=== PATIENT | female | born 1965 | race Caucasian/White ===

== ENCOUNTER → 2017-05-15 | Outpatient (CLI) | payer OTHER ==
[2015-12-22 15:50] VITALS: BP 161/121
--- NOTE | 2017-05-15 16:32 | Diagnostic Imaging Report ---
KIM CAREY [facility] [address] [facility].[address] [address] Report Submission Date: May 15, 2017 3:49:51 PM CDT Patient Study Name: LINDA KITCHEN Date: May 15, 2017 3:20:04 PM CDT Modality Type: CR Gender: F Description: CHEST : 69 Institution: [facility] Physician: KIM CAREY Examination: PA and lateral chest. History: Evaluate lung almonte. Comparison exam none provided Findings: PA lateral chest demonstrate a normal cardiac and mediastinal silhouette. Mild parenchymal haziness involving the right inferior hilum. No other consolidative process. No blunting of the costophrenic margins. Osseous structures are appropriate for age. Impression: Mild right infrahilar hazy infiltrate. No effusion. Electronically signed on May 15, 2017 3:49:51 PM CDT by: Franklyn LOMELI
[2017-05-15 16:41] LABS: eGFR (African) > 60; eGFR (Non-African) > 60
[2017-05-16 01:41] LABS: BASO % 0.4 % (0.0-1.5); EOS % 1.4 % (0.0-6.8); LYMPH ABS # 2.35 thou/uL (0.60-4.00); MCH. 32.5 pg (28.0-34.0); MCV 94.7 fL (80.0-100.0); MONOCYTE % 4.7 % (0.0-11.0); MONOCYTE ABS # 0.55 thou/uL (0.00-0.90); PLATELET COUNT 313 thou/uL (130-400)
== END ==
LOC: RAD 15:15
PROVIDERS: ATTEND Family Medicine
DX: I10 Essential (primary) hypertension (principal); E55.9 Vitamin D deficiency, unspecified; R53.83 Other fatigue
CPT/HCPCS: 36415; 71020; 80053; 82306; 84439; 84443; 84481; 85025

== ENCOUNTER 2017-09-04 12:58 | Outpatient (CLI) | payer OTHER ==
[2015-12-22 15:50] VITALS: BP 161/121
--- NOTE | 2017-09-14 11:35 | CONSULTATION REPORT ---
PRIMARY CARE PROVIDER: Dr. Solange Atkinson CONSULTING PHYSICIAN: Mitzy Mckeon MD CHIEF COMPLAINT: "I am having trouble with shortness of breath." SIGNIFICANT PROBLEM LIST: 1. Hypertension. 2. Gastroesophageal reflux disease (GERD). 3. Chronic obstructive pulmonary disease (COPD). 4. History of pneumonia. 5. History of bronchitis. 6. Current tobacco use. HISTORY OF PRESENT ILLNESS: This is a 52-year-old female who complains of shortness of breath that has been going on for a while. She has used Symbicort in the past which she states helped her. She has also used prednisone in the past as she recalls only once as a prednisone taper. She has also used antibiotics when she was given a diagnosis of bronchitis. She denies having any inhalers. She has no BiPAP. No home oxygen. No home nebulizer. She has not had any sleep studies or PFTs. She denies a cough. She denies heartburn, nausea or vomiting. No chest pain. No PND. She does have issues with postnasal drip, which she takes Sindy p.r.n. There has been no hemoptysis. No pedal edema. Her weight is stable. Appetite is good. There are no fever, chills, or sweats. She also complains of significant daytime sleepiness sometimes when she is driving. She also states that she snores but has not had a sleep study. She is a current tobacco user. She smokes 1-1/2 to 2 packs of cigarettes per day. She has been doing so for 30 years. She states she has tried Chantix in the past but it did not help her. REVIEW OF SYSTEMS: Please see HPI for pertinent review of systems, otherwise, please see patient intake record for [facility]. MEDICATIONS: 1. Amlodipine 5 mg daily. 2. Celexa 20 mg daily. ALLERGIES: No known drug allergies. SOCIAL HISTORY: She is . Her smokes tobacco. She has daughters and is currently raising her 2 grandchildren. FAMILY HISTORY: Mother with cancer, lung disease, and heart disease. Father and brother with heart disease. PHYSICAL EXAMINATION: Vital Signs: BP: 179/101, P: 74, R: 20, T: 98.1, oxygen saturation is 92% on room air. Height: 5 feet 7 inches. Weight: 184 pounds. BMI: 28.8, overweight. General: This is a well-developed, well-nourished female in no acute distress speaking in full sentences. HEENT: Pupils are equal and reactive to light. Oropharynx is clear. No thrush. No erythema. Neck: Supple. No adenopathy. No JVD. Lungs: Good bilateral air movement. No wheezes. No rhonchi. No rales. No tactile fremitus. Cardiac: Rate and rhythm are regular. S1, S2, without S3, S4, or murmurs. Abdomen: Positive bowel sounds. Soft and nontender. No organomegaly. Extremities: No cyanosis, clubbing, or edema. Lymph nodes: No lymphadenopathy. Neurologic: Alert and oriented x3. Grossly nonfocal exam. IMAGING: Imaging all reviewed by me personally. Chest x-ray on May 15, 2017: Flat diaphragm. No infiltrates. Peribronchial cuffing. Slight right infrahilar haziness. LABORATORIES: May 15, 2017: Hemoglobin 16, Hematocrit 45, white blood cell count 11.7, platelets 313,000. Chemistry: Sodium 136, potassium 4.1, chloride 103, bicarb of 25, BUN 17, creatinine 0.7, glucose of 84. ASSESSMENT AND PLAN: PROBLEM #1: Chronic obstructive pulmonary disease (COPD). Patient has a previous history of COPD and states Symbicort has helped her in the past. PLAN: 1. Pulmonary function test (PFT) with arterial blood gas (ABG). 2. Symbicort 160/4.5 two puffs b.i.d. 3. Albuterol MDI, 2 puffs every 3 to 4 hours p.r.n. shortness of breath. PROBLEM #2: Current tobacco use. PLAN: Need to discuss with patient next course of action to accomplish tobacco cessation. PROBLEM #3: Possible obstructive sleep apnea. PLAN: Need to schedule a sleep study. PROBLEM #4: Pulmonary preventative medicine. Patient states she is getting a flu shot today. PLAN: Needs a Pneumovax. cc: Dr. Solange LOMELI
== END 2017-09-04 13:00 ==
LOC: PULMONARY 12:58
PROVIDERS: ATTEND Internal Medicine Pulmonary Disease
DX: I10 Essential (primary) hypertension (principal); K21.9 Gastro-esophageal reflux disease without esophagitis; J44.9 Chronic obstructive pulmonary disease, unspecified; Z72.0 Tobacco use; R06.02 Shortness of breath
CPT/HCPCS: 99213; 99214

== ENCOUNTER 2017-10-30 12:31 | Outpatient (CLI) | payer OTHER ==
[2015-12-22 15:50] VITALS: BP 161/121
--- NOTE | 2017-11-12 11:48 | OP Clinic Progress Note ---
PRIMARY CARE PROVIDER: Dr. Solange Atkinson CONSULTING PHYSICIAN: Mitzy Mckeon MD CHIEF COMPLAINT: "I feel like I have pneumonia again." SIGNIFICANT PROBLEM LIST: 1. Chronic obstructive pulmonary disease (COPD), (PFTs not done due to insurance issues). 2. Hypertension. 3. Gastroesophageal reflux disease. 4. History of pneumonia. 5. History of bronchitis. 6. Current tobacco use. HISTORY OF PRESENT ILLNESS: Patient returns stating that she feels like she has pneumonia. She is coughing quite a bit bringing up green sputum. At times, it is also clear. She has not been taking any new medications specifically for this instance. She states she is taking the Symbicort as prescribed on last visit at 160/4.5 mcg 2 puffs b.i.d. She is also taking albuterol p.r.n., although she states she has not taken it recently. She has not had any recent antibiotics or prednisone. She states that she is unable to obtain PFTs due to insurance issues. She continues to use tobacco at approximately half a pack per day. She states that she is trying to cut down. She denies chest pain. There is no PND. No edema. No fever, chills, or sweats. No hemoptysis. ALLERGIES: No known drug allergies. MEDICATIONS: 1. Symbicort 160/4.5 mcg 2 puffs b.i.d. 2. Albuterol 2 puffs every 3 to 4 p.r.n. shortness of breath. 3. Amlodipine 5 mg daily. 4. Celexa 20 mg daily, (although the patient appears to take it p.r.n. Last dose approximately 10 days ago). PHYSICAL EXAMINATION: VITAL SIGNS: BP: 184/101, P: 87, R: 20, T: 97.5, room air oxygen saturation was 93%. Weight: 192 pounds. BMI: 30.1. GENERAL: A well-developed, well-nourished female. She is coughing during the interview but no shortness of breath or respiratory distress. HEENT: Pupils are equal and reactive to light. Oropharynx is clear. No erythema. LUNGS: Bilateral wheezes. CARDIAC: Rate and rhythm are regular. ABDOMEN: Soft and nontender. EXTREMITIES: No edema, cyanosis, or clubbing. NEUROLOGIC: Alert and oriented x3. Grossly nonfocal. ASSESSMENT AND PLAN: PROBLEM #1: Chronic obstructive pulmonary disease (COPD), acute exacerbation of COPD. PLAN: 1. Chest x-ray, PA and lateral. 2. Continue current bronchodilators, namely Symbicort and albuterol. 3. Augmentin 875 mg tablets b.i.d. for 14 days. 4. Prednisone taper. PROBLEM #2: Hypertension. Patient has had mildly elevated blood pressures on the last 2 occasions, although it needs to be taken into account that she is currently having a COPD exacerbation; however, she may benefit from something more than amlodipine 5 mg daily. cc: Dr. Solange LOMELI
== END 2017-10-30 12:33 ==
LOC: PULMONARY 12:31
PROVIDERS: ATTEND Internal Medicine Pulmonary Disease
DX: J44.1 Chronic obstructive pulmonary disease with (acute) exacerbation (principal); I10 Essential (primary) hypertension; K21.9 Gastro-esophageal reflux disease without esophagitis; Z72.0 Tobacco use
CPT/HCPCS: 99213; 99214

== ENCOUNTER 2018-06-25 12:46 | Outpatient (CLI) | payer OTHER ==
[2015-12-22 15:50] VITALS: BP 161/121
[2018-06-25 13:40] LABS: eGFR (Non-African) > 60
--- NOTE | 2018-06-25 19:10 | Diagnostic Imaging Report ---
KIM CAREY [facility] [address] [facility] [address] [address] Report Submission Date: Jun 25, 2018 2:34:59 PM GOLD NIB GRINDER Patient Study Name: LINDA KITCHEN Date: Jun 25, 2018 1:10:40 PM GOLD NIB GRINDER Modality Type: DX Gender: F Description: CHEST : 69 Institution: [facility] Physician: KIM CAREY PA AND LATERAL CHEST HISTORY: Bronchitis. Chest pain. Cough COMPARISON: None PA and Lateral Chest dated June 25, 2018 demonstrates a normal cardiomediastinal silhouette. Pulmonary vascularity is normal. Lungs are clear. IMPRESSION: NO ACTIVE DISEASE. Electronically signed on Jun 25, 2018 2:34:59 PM GOLD NIB GRINDER by: Sylvia LOMELI
== END 2018-06-25 12:51 | disposition home or self-care (01) ==
LOC: RT 12:46
PROVIDERS: ATTEND Family Medicine
DX: R07.2 Precordial pain (principal); I10 Essential (primary) hypertension; J40 Bronchitis, not specified as acute or chronic
CPT/HCPCS: 36415; 71046; 80053

== ENCOUNTER 2018-09-10 16:18 | Outpatient (CLI) | payer OTHER ==
[2015-12-22 15:50] VITALS: BP 161/121
--- NOTE | 2018-09-11 03:14 | Diagnostic Imaging Report ---
KIM CAREY [facility] [address] [facility] [address] [id number] Report Submission Date: Sep 10, 2018 4:41:57 PM [employer] Patient Study Name: LINDA KITCHEN Date: Sep 10, 2018 4:23:01 PM [employer] Modality Type: DX Gender: F Description: L SPINE 2 OR 3 VIEWS : 69 Institution: [facility] Physician: KIM CAREY Examination: Plain film lumbar spine History: Chronic back pain, radiating to her hips Findings: 3 views of the lumbar spine demonstrate osteopenia. Scattered osteophytes and disc space narrowing. L5/S1 listhesis. No anterior compression. No soft tissue abnormalities. Impression: Osteopenia and degenerative changes. No vertebral body compression deformity. Electronically signed on Sep 10, 2018 4:41:57 PM [employer] by: Franklyn LOMELI
== END 2018-09-10 16:19 ==
LOC: RAD 16:18
PROVIDERS: ATTEND Family Medicine
DX: M85.88 Other specified disorders of bone density and structure, other site (principal); M54.42 Lumbago with sciatica, left side
CPT/HCPCS: 72100

== ENCOUNTER 2018-10-05 09:53 | Emergency (ER) | payer OTHER ==
[2018-10-05 10:03] VITALS: BP 126/105
--- NOTE | 2018-10-05 10:07 | ED Physician Documentation ---
Upper Respiratory Symptoms - HISTORIAN Historian: patient - HPI Stated Complaint: Congestion/cough Chief Complaint: Cough/ Upper Respiratory Additional Information: Patient presents to ED with a 6 day history of cough, nasal congestion and worsening weakness. She denies fever. Onset: days ago (6) Duration: intermittent episodes Context: denies: recent foreign travel Associated Symptoms: chills, sinus pain, productive cough. denies: fever Worsened by Deep Breath: No Further Comments: no - ROS CONST/EYES: weakness CVS/RESP: denies: chest pain, shortness of breath LYMPH: denies: rash GI/: denies: vomiting, nausea NEURO/PSYCH: denies: fainting MS/SKIN: denies: muscle aches - PAST HX Lung Disease: COPD PE Risk Factors: none. denies: leg swelling Surgeries/Procedures: none Allergies/Adverse Reactions: Allergies Allergy/AdvReac Type Severity Reaction Status Date / Time No Known Allergies Allergy Verified 10/05/18 10:03 Home Medications: Ambulatory Orders Medication Instructions Recorded Cefdinir [Omnicef] 300 mg PO BID #20 capsule 10/05/18 - SOCIAL HX Smoking History: cigarettes, greater than 1 pack/day Alcohol Use: none Drug Use: none - FAMILY HX Family History: none - VITAL SIGNS Vital Signs: Vital Signs Temp Pulse Resp BP Pulse Ox 96.1 F L 89 15 126/105 99 10/05/18 10:00 10/05/18 10:00 10/05/18 10:00 10/05/18 10:00 10/05/18 10:00 - REVIEWED ASSESSMENTS Nursing Assessment Reviewed: Yes Vitals Reviewed: Yes ED Results Lab/Radiology - Orders Orders: ED Orders Category Date Time Status Lidocaine 1% 5ml(IM or SUTURE) [Xylocaine] Med 10/05/18 10:11 Once 5 mg IJ NOW ONE cefTRIAXone SODIUM [Rocephin] Med 10/05/18 10:11 Once 1 gm IM NOW ONE methylPREDNISolone SOD SUCC [Solu-MEDROL] Med 10/05/18 10:11 Once 125 mg IM NOW ONE Upper Respiratory Symptoms - EXAM General Appearance: no acute distress, alert EENT: eyes nml inspection Neck: supple Respiratory: no resp. distress, breath sounds nml Abdomen: non-tender, nml bowel sounds CVS: reg rate & rhythm, heart sounds normal Skin: color nml, no rash, warm,dry Extremities: non-tender Neuro/Psych: oriented x3, mood/affect nml Discharge Clincal Impression: Upper respiratory infection Qualifiers: URI type: unspecified URI Qualified Code(s): J06.9 - Acute upper respiratory infection, unspecified Prescriptions: Cefdinir [Omnicef] 300 mg PO BID #20 capsule Referrals: Neptali Newton MD [Primary Care Provider] - 2 Days Additional Instructions: 1. Take Antibiotics as directed 2. Add Mucinex daily while on antibiotics 3. Sinus irrigation may be beneficial 4. Follow up with PCP within 1 week, discuss scheduling a sleep study 5. Return to ER for new or worsening symptoms. Condition: Stable Disposition: 01 HOME, SELF-CARE Decision to Admit: NO Date of Decison to Admit: 10/05/18 Decision Time: 10:10
[2018-10-05] MEDS ORDERED: Lidocaine 1% 5ml 10 MG/ML VIAL IJ ONE (10:11)
[2018-10-05] MEDS ORDERED: methylPREDNISolone SOD SUCC 125 MG/2 ML VIAL IM ONE (10:11)
[2018-10-05] MEDS ORDERED: cefTRIAXone SODIUM 1 GM INJ IM ONE (10:11)
== END 2018-10-05 10:32 | disposition home or self-care (01) ==
LOC: ED 09:53
DX: J06.9 Acute upper respiratory infection, unspecified (principal); Z72.0 Tobacco use
CPT/HCPCS: 99282; 99283